=== PATIENT | female | born 1965 | race Caucasian/White ===

== ENCOUNTER 2017-05-05 15:12 | Outpatient (CLI) | payer BC | END 2017-05-05 15:13 | disposition home or self-care (01) | LOC: BICMAMMO 15:12 | PROVIDERS: ATTEND Obstetrics & Gynecology | DX: Z12.31 Encounter for screening mammogram for malignant neoplasm of breast (principal) | CPT/HCPCS: 77063; 77067 ==

== ENCOUNTER 2017-06-16 11:53 | Outpatient (CLI) | payer BC | END 2017-06-16 11:54 | disposition home or self-care (01) | LOC: BICRAD 11:53 | PROVIDERS: ATTEND Family Medicine | DX: R07.89 Other chest pain (principal) | CPT/HCPCS: 71046 ==

== ENCOUNTER 2017-08-09 15:21 | Outpatient (CLI) | payer BC ==
--- NOTE | 2017-08-09 16:09 | RAD ---
PA AND LATERAL CHEST: Indication: Dyspnea. Comparison: None. FINDINGS: Lungs are clear. Cardiomediastinal silhouette is within normal limits. There is mild scoliosis of the thoracic spine. There is an ACDF plate involving the lower cervical spine. IMPRESSION: No acute cardiopulmonary process. POS: [facility]
== END 2017-08-09 15:22 | disposition home or self-care (01) ==
LOC: RAD 15:21
PROVIDERS: ATTEND Internal Medicine Critical Care Medicine
DX: R06.00 Dyspnea, unspecified (principal)
CPT/HCPCS: 71046

== ENCOUNTER 2017-08-25 12:10 | Outpatient (CLI) | payer BC, OTHER ==
--- NOTE | 2017-08-25 15:07 | NM ---
VQ SCAN: Date: 08/25/17 HISTORY: 52-year-old female with dyspnea. TECHNIQUE: A ventilation perfusion scan was performed using 7 mCi Xenon-133 by inhalation for the ventilation sc an followed by the intravenous administration of 6.2 mCi technetium-99m MAA for the perfusion scan. FINDINGS: Fairly homogeneous tracer distribution seen in the lung torrez on both ventilation and perfusion scan s without mismatched pleural based, wedge-shaped, segmental or subsegmental perfusion defects. No sig nificant tracer retention is seen on the washout phase of the ventilation study. IMPRESSION: Normal exam. POS: [facility]
--- NOTE | 2017-08-25 15:19 | RAD ---
CHEST TWO VIEWS: History: Evaluate for pulmonary embolism. Comparison: 08-09-17 FINDINGS: Normal cardiac silhouette. The lungs and pleural spaces are clear. No pneumothorax or osseous abnorma lities. IMPRESSION: No acute cardiopulmonary process. POS: [facility]
[2017-08-25 15:42] LABS: Actual Bicarbonate (HCO3a) 26.6 mEq/L (22-28); Base Excess (BEa) 2.2 mEq/L (-2.0 to +3.0); CO2 Tension 40.8 mmHg (35.0-45.0); O2 Tension (PaO2) 100.3 mmHg (80.0-100.0); pH, Arterial 7.43 (7.35-7.45)
[2017-08-25 15:43] LABS: Hemoglobin (Hb) 12.8 g/dL (12.0-16.0)
[2017-08-25 15:44] LABS: Analyzer IN Cardio OR; Calcium, Ionized 1.2 mmol/L (1.12-1.30); Puncture Site RR
== END 2017-08-25 12:11 | disposition home or self-care (01) ==
LOC: NM 12:10
PROVIDERS: ATTEND Internal Medicine Critical Care Medicine
DX: R06.00 Dyspnea, unspecified (principal)
CPT/HCPCS: 71046; 78582; 82805; 94010; 94727; 94729; A9540; A9558

== ENCOUNTER 2018-08-15 14:17 | Outpatient (CLI) | payer BC ==
--- NOTE | 2018-08-15 14:45 | RAD ---
RIGHT KNEE 4 VIEWS: Date: 08/15/18 HISTORY: Right knee pain. FINDINGS/IMPRESSION: Mild degenerative changes are present. No fracture, dislocation, or bony destruction is identified. POS: OFF
== END 2018-08-15 14:18 | disposition home or self-care (01) ==
LOC: BICRAD 14:17
PROVIDERS: ATTEND Internal Medicine Rheumatology
DX: M25.561 Pain in right knee (principal); M17.11 Unilateral primary osteoarthritis, right knee

== ENCOUNTER 2018-11-22 15:16 | Outpatient (CLI) | payer BC ==
--- NOTE | 2018-11-22 15:35 | MMO ---
Bilateral MAMMO Bilat Screen [facility]. CLINICAL HISTORY: Patient is 53 years old and is seen for screening. The patient has no family history of breast cancer. The patient has no personal history of cancer. VIEWS: The views performed were: bilateral craniocaudal with tomosynthesis and bilateral mediolateral oblique with tomosynthesis. FILMS COMPARED: The present examination has been compared to prior imaging studies performed at [facility] on 01/31/2013, 05/01/2014, 06/02/2015 and 05/05/2017. This study has been interpreted with the assistance of computer-aided detection. MAMMOGRAM FINDINGS: The breasts are heterogeneously dense, which could obscure a lesion on mammography. There are no suspicious masses, suspicious calcifications, or new areas of architectural distortion. IMPRESSION: THERE IS NO MAMMOGRAPHIC EVIDENCE OF MALIGNANCY. A ROUTINE FOLLOW-UP MAMMOGRAM IN 1 YEAR IS RECOMMENDED. THE RESULTS OF THIS EXAM WERE SENT TO THE PATIENT. ACR BI-RADS Category 1 - Negative MAMMOGRAPHY NOTE: 1. A negative mammogram report should not delay a biopsy if a dominant of clinically suspicious mass is present. 2. Approximately 10% to 15% of breast cancers are not detected by mammography. 3. Adenosis and dense breasts may obscure an underlying neoplasm. Reported by: BRISEIDA ROSARIO MD Electonically Signed: [id number]
== END 2018-11-22 15:17 | disposition home or self-care (01) ==
LOC: BICMAMMO 15:16
PROVIDERS: ATTEND Family Medicine
DX: Z12.31 Encounter for screening mammogram for malignant neoplasm of breast (principal)
CPT/HCPCS: 77063; 77067

== ENCOUNTER 2019-11-30 12:38 | Outpatient (CLI) | payer BC ==
--- NOTE | 2019-11-30 13:09 | MMO ---
Bilateral MAMMO Bilat Screen [facility]. CLINICAL HISTORY: Patient is 54 years old and is seen for screening. The patient has no family history of breast cancer. The patient has no personal history of cancer. VIEWS: The views performed were: bilateral craniocaudal with tomosynthesis; bilateral mediolateral oblique with tomosynthesis; and bilateral exaggerated craniocaudal. FILMS COMPARED: The present examination has been compared to prior imaging studies performed at [facility] on 05/01/2014, 06/02/2015, 05/05/2017 and 11/22/2018. This study has been interpreted with the assistance of computer-aided detection. MAMMOGRAM FINDINGS: The breasts are heterogeneously dense, which could obscure a lesion on mammography. There are no suspicious masses, suspicious calcifications, or new areas of architectural distortion. IMPRESSION: THERE IS NO MAMMOGRAPHIC EVIDENCE OF MALIGNANCY. A ROUTINE FOLLOW-UP MAMMOGRAM IN 1 YEAR IS RECOMMENDED. THE RESULTS OF THIS EXAM WERE SENT TO THE PATIENT. ACR BI-RADS Category 1 - Negative MAMMOGRAPHY NOTE: 1. A negative mammogram report should not delay a biopsy if a dominant of clinically suspicious mass is present. 2. Approximately 10% to 15% of breast cancers are not detected by mammography. 3. Adenosis and dense breasts may obscure an underlying neoplasm. Reported by: SACHIN WEST MD Electonically Signed: [id number]
== END 2019-11-30 12:39 | disposition home or self-care (01) ==
LOC: BICMAMMO 12:38
PROVIDERS: ATTEND Family Medicine
DX: Z12.31 Encounter for screening mammogram for malignant neoplasm of breast (principal)
CPT/HCPCS: 77063; 77067

== ENCOUNTER 2020-04-15 20:13 | Observation (INO) | payer BC ==
[~2020-04-15 20:13] MED LIST: Iopamidol-370 76% 500 ML 1 ML ONE
[2020-04-15] MEDS ORDERED: Nitroglycerin 2% Ointment 1 INCH/1 GM Packet ONE (20:34)
[2020-04-15] MEDS ORDERED: Morphine 4 MG/ML VIAL ONE (20:34)
[2020-04-15] MEDS ORDERED: Aspirin Chewable 81 MG TAB ONE ×2 (20:34→20:35)
[2020-04-15 20:54] LABS: Hemoglobin 12.3 g/dL (12.0-16.0); Mean Corpuscular HGB CONC 33.9 g/dL (32.0-36.0); Mean Corpuscular Hemoglobin 31.2 pg (27.0-31.0); Mean Corpuscular Volume 91.8 fL (78.0-98.0); Mean Platelet Volume 8.8 fL (7.4-10.4); Platelet Count 273 thou/uL (130-400); RBC Distribution Width 11.2 % (11.5-14.5); Red Blood Cell (RBC) Count 3.94 mill/uL (4.20-5.40); White Blood Cell (WBC) Count 6.9 thou/uL (4.8-10.8)
[2020-04-15 21:06] LABS: Band 1 % (5-11); Eosinophils 3 % (0-10); Lymphocytes 42 % (21-51); MDiff Complete? YES; Monocytes 9 % (0-10); Neutrophil 38 % (42-75); Platelet Morphology Comment Appears Adequate; Reactive Lymphocytes 6 % (0-10)
[2020-04-15 21:17] LABS: ALT (SGPT) 12 U/L (8-55); AST (SGOT) 22 U/L (5-34); Albumin 4.5 g/dL (3.5-5.0); Alkaline Phosphatase 60 U/L (40-110); Anion Gap 18 mmol/L (10-20); BUN (Urea Nitrogen) 21 mg/dL (9.8-20.1); Bilirubin, Total 0.3 mg/dL (0.2-1.2); CK (CPK) 95 U/L (29-168); Calc. Creatinine Clearance 0 mL/min (70-130); Calcium 9.5 mg/dL (7.8-10.44); Carbon Dioxide 23 mmol/L (22-29); Chloride 102 mmol/L (98-107); Globulin 3.4 g/dL (2.4-3.5); Glucose 112 mg/dL (70-105); Lipase 131 U/L (8-78); Protein, Total 7.9 g/dL (6.0-8.3); Sodium 140 mmol/L (136-145)
[2020-04-15 21:24] LABS: Potassium 2.9 mmol/L (3.5-5.1)
--- NOTE | 2020-04-15 21:33 | CT ---
CTA OF THE CHEST AND ABDOMEN UTILIZING AN AORTIC DISSECTION PROTOCOL AND 3-D REFORMATTED IMAGING INDICATION: 55-year-old female with chest and back pain COMPARISON: None FINDINGS: Aorta: No acute aortic stenosis, occlusion or aneurysmal formation demonstrated. Central pulmonary artery: No central pulmonary embolus demonstrated. Additional thorax findings: No focal consolidation, pleural effusion or pneumothorax is evident. Additional abdominal findings: No acute abnormality. Osseous structures: No acute osseous abnormality. There is scattered degenerative and osteoarthritic change present. IMPRESSION: 1. No appreciable aortic stenosis, occlusion or aneurysmal formation demonstrated.
[2020-04-15] MEDS ORDERED: Potassium Chloride 20 MEQ TAB ONE (21:50)
--- NOTE | 2020-04-15 23:17 | ULT ---
RIGHT UPPER QUADRANT ULTRASOUND CLINICAL HISTORY: Chest pain with elevated lipase. COMPARISON: CTA aortic dissection protocol dated April 15, 2020 FINDINGS: Liver:Normal echotexture without focal mass. Intrahepatic bile ducts: No intrahepatic or extrahepatic biliary dilation.; Common bile duct: 4.9 mm. Gallbladder: Normal appearing. Rothman's sign:None Main portal vein:Patent with hepatopedal flow. Pancreas:Visualized pancreas appears normal. Right kidney: Right kidney measures 10.3 x 4.4 x 4.3 cm. No focal renal lesion or hydronephrosis. Additional findings: None. IMPRESSION: Normal RUQ ultrasound.
[2020-04-15] MEDS ORDERED: Morphine 4 MG/ML VIAL SLOW IVP PRN (23:35)
[2020-04-15] MEDS ORDERED: Ondansetron PF 4 MG/2 ML Vial IVP PRN (23:45)
[2020-04-15] MEDS ORDERED: Acetaminophen 325 MG TAB PO PRN (23:45)
[2020-04-15] MEDS ORDERED: Sodium Chloride 0.9% 1,000 ML IV SCH (23:45)
[2020-04-15] MEDS ORDERED: Ondansetron ODT 4 MG TAB SL PRN (23:45)
[2020-04-16 00:12] LABS: Troponin I Less than 0.010 ng/mL (< 0.028)
[2020-04-16 03:17] LABS: Troponin I Less than 0.010 ng/mL (< 0.028)
[2020-04-16] MEDS ORDERED: traMADol HCl 50 MG TAB PO PRN (04:15)
[2020-04-16] MEDS ORDERED: HYDROcodone/Acetaminophen 10/325 mg Tablet PO PRN (04:15)
[2020-04-16] MEDS ORDERED: Aspirin 325 mg Enteric Coated Tablet PO SCH (04:15)
[2020-04-16] MEDS ORDERED: Nitroglycerin 0.4 MG TAB (25 Tab Bottle) SL PRN (04:15)
--- NOTE | 2020-04-16 04:19 | PDOC.HHP ---
Hospitalist HPI Chest pain History of Present Illness: Patient is a 55 year old female with PMH HTN who presents to ED for chest pain. Pain began yesterday, 30 minutes before presentation, was in lower sternum, she was concerned for OR and went to ED. Pain radiates to back. In ED, ST depressions in lateral leads. CT chest showed no acute findings. troponin negative. she saw Dr Egan about 5 years ago, had stress test and holter monitor with no pathology identified. Patient admitted for further workup and care. Allergies/Adverse Reactions: Allergy/AdvReac Type Severity Reaction Status Date / Time caffeine [From Cafergot] Allergy Mild Verified 05/14/19 12:05 ergotamine tartrate Allergy Mild Verified 05/14/19 12:05 [From Cafergot] Home Medications: Medication Instructions Recorded Confirmed Type Escitalopram Oxalate 20 mg PO HS 10/10/12 10/10/12 History Levothyroxine Sodium 125 mcg PO HS 10/10/12 10/10/12 History Lisinopril/Hydrochlorothiazide 1 tablet PO HS 10/10/12 10/10/12 History [Zestoretic] traMADol HCl [Tramadol HCl] 50 mg PO QID PRN 10/10/12 10/10/12 History HYDROcodone/Acetaminophen [[place] 1 tab PO PRN PRN 10/11/12 10/11/12 History 10-325 Tablet] Past History: PMH: HTN, HLD, hypothyroidism PSH: none FH: heart disease social: no significant Hospitalist HPI ROS Constitutional: denies: fever, chills, sweats, weakness, malaise, other Eyes: denies: pain, vision change, conjunctivae inflammation, eyelid infla mmation, redness, other ENT: denies: ear pain, ear discharge, nose pain, nose discharge, nose congestion, mouth pain, mouth swelling, throat pain, throat swelling, other Respiratory: denies: cough, dry, shortness of breath, hemoptysis, SOB with excer tion, pleuritic pain, sputum, wheezing, other Cardiovascular: reports: chest pain. denies: palpitations, orthopnea, paroxysmal noc. dyspnea, edema, light headedness, other Gastrointestinal: denies: nausea, vomiting, abdominal pain, diarrhea, constip ation, melena, hematochezia, other Genitourinary: denies: dysuria, frequency, incontinence, hematuria, retention, other Musculoskeletal: denies: neck pain, shoulder pain, arm pain, back pain, hand pain, leg pain, foot pain, other Skin: denies: rash, lesions, kim, bruising, other Neurological: denies: weakness, numbness, incoordination, change in speech, confusion, seizures, other All other systems reviewed; all pertinent +/- noted in HPI/Subj Hospitalist Exam Vitals: VITAL SIGNS TueApr 15, 2020 22:30 SANDER Lobato Julia BP: 131/80 Pulse: 71 Resp: 18 Temp: 98.6 (Oral) Pain: 0 O2 sat: 98 on (Room Air) Time: 04/15/2020 22:30. General Appearance: NAD, awake alert Eye: PERRL, anicteric sclera ENT: normocephalic atraumatic, no oropharyngeal lesions, moist mucosa Neck: supple, symmetric, no JVD, no thyromegaly, no lymphadenopathy, no carotid bruit Heart: RRR, no murmur, no gallops, no rubs, normal peripheral pulses Respiratory: CTAB, no wheezes, no rales, no ronchi, normal chest expansion, no tachypnea, normal percussion Gastrointestinal: soft, non-tender, non-distended, normal bowel sounds, no palpable masses, no hepatomegaly, no splenomegaly, no bruit Extremities: no cyanosis, no clubbing, no edema Skin: normal turgor, no lesions, no rashes Neurological: cranial nerve grossly intact, normal sensation to touch, no weakness, no focal deficits, no new deficit Musculoskeletal: normal tone, normal strength, no muscle wasting Psychiatric: normal affect, normal behavior, A&O x 3 Hospitalist Results Result Diagrams: 04/15/20 20:04/15/20 20:30 Lab results: Laboratory Last Values WBC 6.9 thou/uL (4.8-10.8) 04/15/20 20: RBC 3.94 mill/uL (4.20-5.40) L 04/15/20 20: Hgb 12.3 g/dL (12.0-16.0) 04/15/20 20: Hct 36.2 % (36.0-47.0) 04/15/20 20:30 MCV 91.8 fL (78.0-98.0) 04/15/20 20:30 MCH 31.2 pg (27.0-31.0) H 04/15/20 20:30 MCHC 33.9 g/dL (32.0-36.0) 04/15/20 20:30 RDW 11.2 % (11.5-14.5) L 04/15/20 20:30 Plt Count 273 thou/uL (130-400) 04/15/20 20:30 MPV 8.8 fL (7.4-10.4) 04/15/20 20:30 Neutrophils % (Manual) 38 % (42-75) L 04/15/20 20:30 Band Neuts % (Manual) 1 % (5-11) L 04/15/20 20:30 Lymphocytes % (Manual) 42 % (21-51) 04/15/20 20:30 Reactive Lymphs % 6 % (0-10) 04/15/20 20:30 Monocytes % (Manual) 9 % (0-10) 04/15/20 20:30 Eosinophils % (Manual) 3 % (0-10) 04/15/20 20:30 Basophils % (Manual) 1 % (0-2) 04/15/20 20:30 Lymphocytes # Not Reportable 04/15/20 20: Plt Morphology Comment Appears Adequate 04/15/20 20:30 Sodium 140 mmol/L (136-145) 04/15/20 20:30 Potassium 2.9 mmol/L (3.5-5.1) L* 04/15/20 20:30 Chloride 102 mmol/L (98-107) 04/15/20 20:30 Carbon Dioxide 23 mmol/L (22-29) 04/15/20 20:30 Anion Gap 18 mmol/L (10-20) 04/15/20 20:30 BUN 21 mg/dL (9.8-20.1) H 04/15/20 20:30 Creatinine 0.82 mg/dL (0.6-1.1) 04/15/20 20:30 Estimated GFR (MDRD) 72 04/15/20 20:30 Glucose 112 mg/dL (70-105) H 04/15/20 20:30 Calcium 9.5 mg/dL (7.8-10.44) 04/15/20 20:30 Total Bilirubin 0.3 mg/dL (0.2-1.2) 04/15/20 20:30 AST 22 U/L (5-34) 04/15/20 20:30 ALT 12 U/L (8-55) 04/15/20 20:30 Alkaline Phosphatase 60 U/L (40-110) 04/15/20 20:30 Creatine Kinase 95 U/L (29-168) 04/15/20 20:30 Troponin I Less than 0.010 ng/mL (< 0.028) 04/16/20 02: Serum Total Protein 7.9 g/dL (6.0-8.3) 04/15/20 20:30 Albumin 4.5 g/dL (3.5-5.0) 04/15/20 20:30 Globulin 3.4 g/dL (2.4-3.5) 04/15/20 20:30 Albumin/Globulin Ratio 1.3 g/dL (1.2-2.2) 04/15/20 20:30 Lipase 131 U/L (8-78) H 04/15/20 20:30 Additional comment: CT Aortic Dissection Protocol Observe DT: TueApr 15, 2020 AORTICDIS CTA OF THE CHEST AND ABDOMEN UTILIZING AN AORTIC DISSECTION PROTOCOL AND 3-D REFORMATTED IMAGING INDICATION: 55-year-old female with chest and back pain COMPARISON: None FINDINGS: Aorta: No acute aortic stenosis, occlusion or aneurysmal formation demonstrated. Central pulmonary artery: No central pulmonary embolus demonstrated. Additional thorax findings: No focal consolidation, pleural effusion or pneumothorax is evident. Additional abdominal findings: No acute abnormality. Osseous structures: No acute osseous abnormality. There is scattered degenerative and osteoarthritic change present. IMPRESSION: 1. No appreciable aortic stenosis, occlusion or aneurysmal formation demonstrated. ED labs, EKG, imaging reports, ed documents, vital signs reviewed EKG: NSR rate 70s, ST depression V4-V6 Hospitalist H&P A/P Plan: Patient is a 55 year old female with PMH HTN who presents to ED for chest pain. # chest pain # EKG changes Pain began yesterday, 30 minutes before presentation, was in lower sternum, she was concerned for OR and went to ED. Pain radiates to back. In ED, ST depressions in lateral leads. CT chest showed no acute findings. troponin negative. she saw Dr Egan about 5 years ago, had stress test and holter monitor with no pathology identified. family history of heart disesae +. Patient admitted for further workup and care. - admit to telemetry - stress test - asa, statin, beta aureliano - consult Dr Egan - monitor on telemetry for arrhythmia - npo - trend troponin # hypokalemia - replacement parameters - kcl now # HLD # hypothyroidism - resume synthroid - tsh, t4 add on DVT/GI ppx
[2020-04-16] MEDS ORDERED: Ondansetron PF 4 MG/2 ML Vial IVP PRN (04:21)
[2020-04-16] MEDS ORDERED: Acetaminophen 325 MG TAB PO PRN (04:21)
[2020-04-16] MEDS ORDERED: cloNIDine 0.1 MG TAB PO PRN (04:21)
[2020-04-16] MEDS ORDERED: Labetalol HCl 100 MG/20 ML VIAL SLOW IVP PRN (04:21)
[2020-04-16] MEDS ORDERED: hydrALAZINE 20 MG/ML VIAL SLOW IVP PRN (04:21)
[2020-04-16] MEDS ORDERED: Promethazine HCl 12.5 MG in Sodium Chloride 0.9% 50 ML IVPB PRN (04:21)
[2020-04-16] MEDS ORDERED: Electrolyte Replacement Protocol 1 EACH FS SCH (04:30)
[2020-04-16] MEDS ORDERED: Acetaminophen 325 MG TAB ONE (05:07)
[2020-04-16 05:14] LABS: Free T4 (Free Thyroxine) 1.14 ng/dL (0.70-1.48); Thyroid Stimulating Hormone 0.2417 uIU/mL (0.35-4.94)
[2020-04-16] MEDS: Potassium Chloride 10 MEQ in Premix Bag 1 BAG IVPB SCH ×3 (05:53→09:41)
[2020-04-16] MEDS ORDERED: Metoprolol Tartrate 25 MG TAB PO SCH (09:00)
[2020-04-16] MEDS ORDERED: Enoxaparin Sodium 40 MG/0.4 ML SYRINGE SC SCH (09:00)
[2020-04-16] MEDS ORDERED: Polyethylene Glycol 3350 17 GM Packet PO SCH (09:00)
[2020-04-16] MEDS ORDERED: Famotidine 20 MG TAB PO SCH (09:00)
[2020-04-16] MEDS ORDERED: Aspirin Chewable 81 MG TAB PO SCH (09:00)
[2020-04-16] MEDS ORDERED: ADENOSINE 60 MG/20 ML VIAL ONE (10:22)
[2020-04-16 11:01] LABS: Magnesium 2.1 mg/dL (1.6-2.6); Phosphorus 3.9 mg/dL (2.3-4.7)
--- NOTE | 2020-04-16 11:02 | PDOC.HOSPP ---
- Subjective Encounter Date: 04/16/20 Encounter Time: 07:15 Subjective: Patient seen and examined bedside today, no overnight event, no new complaint, - Objective Result Diagrams: 04/15/20 20:30 04/15/20 20:30 Radiology Reviewed by me: Yes EKG Reviewed by me: Yes Hospitalist ROS - Review of Systems ENT: denies: ear pain, ear discharge, nose pain, nose discharge, nose congestion, mouth pain, mouth swelling, throat pain, throat swelling, other Respiratory: denies: cough, dry, shortness of breath, hemoptysis, SOB with excertion, pleuritic pain, sputum, wheezing, other Cardiovascular: denies: chest pain, palpitations, orthopnea, paroxysmal noc. dyspnea, edema, light headedness, other Gastrointestinal: denies: nausea, vomiting, abdominal pain, diarrhea, cons tipation, melena, hematochezia, other Genitourinary: denies: dysuria, frequency, incontinence, hematuria, retention, other Musculoskeletal: denies: neck pain, shoulder pain, arm pain, back pain, hand pain, leg pain, foot pain, other - Medication Medications: Active Medications Generic Name Dose Route Start Last Admin Trade Name Freq PRN Reason Stop Dose Admin Aspirin 81 mg 04/16/20 09:00 04/16/20 09:43 Aspirin Chewable 81 Mg Tab PO Not Given DAILY [facility] Enoxaparin Sodium 40 mg 04/16/20 09:00 04/16/20 09:43 Enoxaparin Sodium 40 Mg/0.4 Ml Syringe SC Not Given 0900 [facility] Famotidine 20 mg 04/16/20 09:00 04/16/20 09:43 Famotidine 20 Mg Tab PO Not Given BID [facility] Metoprolol Tartrate 12.5 mg 04/16/20 09:00 04/16/20 09:43 Metoprolol Tartrate 25 Mg Tab PO Not Given BID [facility] Polyethylene Glycol 17 gm 04/16/20 09:00 04/16/20 09:43 Polyethylene Glycol 3350 17 Gm Packet PO Not Given DAILY [facility] Hospitalist Exam General Appearance: NAD, awake alert Eye: PERRL, anicteric sclera ENT: normocephalic atraumatic, no oropharyngeal lesions Neck: supple, symmetric, no JVD, no thyromegaly Heart: RRR, no murmur, no gallops, no rubs Respiratory: no wheezes, no rales, no ronchi Gastrointestinal: soft, non-tender, non-distended, normal bowel sounds Extremities: no cyanosis, no clubbing, no edema Skin: normal turgor, no lesions Neurological: no focal deficits Musculoskeletal: normal tone, normal strength Psychiatric: normal affect, normal behavior Hosp A/P (1) Chest pain Code(s): R07.9 - CHEST PAIN, UNSPECIFIED Status: Acute (2) Anxiety and depression Code(s): F41.9 - ANXIETY DISORDER, UNSPECIFIED; F32.9 - MAJOR DEPRESSIVE DISORDER, SINGLE EPISODE, UNSPECIFIED Status: Acute (3) Hypothyroidism Code(s): E03.9 - HYPOTHYROIDISM, UNSPECIFIED Status: Acute (4) Hypertension Code(s): I10 - ESSENTIAL (PRIMARY) HYPERTENSION Status: Acute (5) Hypokalemia Code(s): E87.6 - HYPOKALEMIA Status: Acute - Plan old records reviewed/req Replace potassium chloride 40 mill EQ p.o. one-time dose, Stress test is planned today, Discharge disposition based on stress test result Cardiology has been consulted
[2020-04-16] MEDS ORDERED: Potassium Chloride 20 MEQ TAB PO SCH (11:15)
--- NOTE | 2020-04-16 12:56 | NM ---
Radionucleotide stress and rest myocardial perfusion scan with CT attenuation correction and SPECT im aging Left ventricular wall motion evaluation and ejection fraction HISTORY: Chest pain. FINDINGS: Adenosine protocol. Homogeneous uptake of radiotracer throughout the left ventricular myoca rdium. No focal perfusion defect or reversibility. QGS analysis of gated SPECT images shows no focal wall motion abnormalities. Ejection fraction calcul ated at 65%. IMPRESSION : No evidence of ischemia. Normal LVEF.
[2020-04-16] MEDS ORDERED: Morphine 4 MG/ML VIAL ONE (13:09)
[2020-04-16] MEDS ORDERED: Potassium Chloride 20 MEQ TAB ONE (13:09)
[2020-04-16 14:28] LABS: Potassium 4.7 mmol/L (3.5-5.1)
--- NOTE | 2020-04-16 14:37 | PDOC.DS.DS ---
Provider Date of Admission: 04/15/20 22:23 Date of Discharge: 04/16/20 Admitting Provider: Jhonny Euceda MD Primary Care Physician: Rosy Hart MD Course Hospital Course: 55-year-old female who was admitted for chest pain, her chest pain description was atypical, patient underwent stress test that came back negative, her troponins remain negative, her telemetry remained unremarkable, patient was chest pain-free while in hospital, she had hypokalemia which was replaced while in hospital, and corrected, I am suspecting her chest pain probably related with musculoskeletal etiology from muscle cramps from hypokalemia, possibility of acid reflux is also likely, patient expressed her wish to go home, we have advised her to continue this medication and follow-up with primary care physician for evaluation and treatment. Resuscitation Status: 04/16/20 04:20 Resuscitation Status Routine Resuscitation Status: FULL: Full Resuscitation Lab Results: 04/15/20 20:30 04/16/20 13:34 Abnormal Lab Results - Last 48 hrs 04/15/20 20:30: RBC 3.94 L, MCH 31.2 H, RDW 11.2 L, Neutrophils % (Manual) 38 L, Band Neuts % (Manual) 1 L 04/15/20 20:30: Potassium 2.9 L*, BUN 21 H, Lipase 131 H 04/16/20 02:22: TSH 3rd Generation 0.2417 L Chest x-ray Status: image reviewed by me Additional comments: No acute cardiopulmonary process CT scan - chest Status: image reviewed by me Additional comments: No evidence of dissection Other Status: image reviewed by me Additional comments: Stress test negative for any reversible ischemia Physical Exam: The patient was seen and examined on the day of discharge. General Appearance: NAD, awake alert Eye: PERRL, anicteric sclera ENT: normocephalic atraumatic, no oropharyngeal lesions Neck: supple, symmetric, no JVD, no thyromegaly Respiratory: CTAB, no wheezes, no rales, no ronchi Cardiovascular: RRR, no murmur, no gallops, no rubs Gastrointestinal: soft, non-tender, non-distended, normal bowel sounds Extremities: no cyanosis, no clubbing, no edema Skin: normal turgor, no lesions Neurological: no focal deficits Musculoskeletal: normal tone, normal strength, no muscle wasting PSYCH: normal affect, normal behavior, A&O x 3 Problem (1) Chest pain Code(s): R07.9 - CHEST PAIN, UNSPECIFIED Status: Acute (2) Anxiety and depression Code(s): F41.9 - ANXIETY DISORDER, UNSPECIFIED; F32.9 - MAJOR DEPRESSIVE DISORDER, SINGLE EPISODE, UNSPECIFIED Status: Acute (3) Hypothyroidism Code(s): E03.9 - HYPOTHYROIDISM, UNSPECIFIED Status: Acute (4) Hypertension Code(s): I10 - ESSENTIAL (PRIMARY) HYPERTENSION Status: Acute (5) Hypokalemia Code(s): E87.6 - HYPOKALEMIA Status: Acute Plan Home Medications: Medication Instructions Recorded Confirmed Type Escitalopram Oxalate 20 mg PO HS 10/10/12 10/10/12 History Levothyroxine Sodium 125 mcg PO HS 10/10/12 10/10/12 History Lisinopril/Hydrochlorothiazide 1 tablet PO HS 10/10/12 10/10/12 History [Zestoretic] traMADol HCl [Tramadol HCl] 50 mg PO QID PRN 10/10/12 10/10/12 History HYDROcodone/Acetaminophen [[place] 1 tab PO PRN PRN 10/11/12 10/11/12 History 10-325 Tablet] Allergies: caffeine [From Cafergot] Allergy (Mild, Verified 05/14/19 12:05) PER ORDERS nausea ergotamine tartrate [From Cafergot] Allergy (Mild, Verified 05/14/19 12:05) PER ORDERS nausea Activity:: Activity as Tolerated Nourishment:: Heart Healthy Diet Therapies:: Not Applicable Equipment/Supplies:: Not Applicable IV Therapy:: Not Applicable Referrals: Rosy Hart MD [Primary Care Provider] - Disposition: HOME Quality CORE MEASURES:: N/A
[2020-04-16] MEDS ORDERED: Escitalopram Oxalate 20 mg Tablet PO SCH (21:00)
[2020-04-16] MEDS ORDERED: Levothyroxine Sodium 125 MCG TAB PO SCH (21:00)
[2020-04-16] MEDS ORDERED: Lisinopril/Hydrochlorothiazide 20/25 mg Tablet PO SCH (21:00)
[2020-04-16] MEDS ORDERED: Atorvastatin Calcium 40 MG TAB PO SCH (21:00)
== END 2020-04-16 14:45 | disposition home or self-care (01) ==
LOC: ERS 20:13 → ERHOLD 22:23
PROVIDERS: ADMIT Internal Medicine; ATTEND Internal Medicine
DX: R07.89 Other chest pain (principal); F41.9 Anxiety disorder, unspecified; F32.9 Major depressive disorder, single episode, unspecified; E03.9 Hypothyroidism, unspecified; I10 Essential (primary) hypertension; E87.6 Hypokalemia; E78.5 Hyperlipidemia, unspecified; Z79.899 Other long term (current) drug therapy; Z91.048 Other nonmedicinal substance allergy status
CPT/HCPCS: 36415; 71275; 74174; 76705; 78452; 80053; 82550; 83690; 83735; 84100; 84132; 84439; 84443; 84484; 85025; 93005; 93017; 94760; 96374; 96376; A9500; G0378; J0153; J2270; J3480; Q9967

== ENCOUNTER 2020-05-31 04:26 | Emergency (ER) | payer BC ==
[2020-05-31] MEDS ORDERED: Ondansetron PF 4 MG/2 ML Vial ONE (04:56)
[2020-05-31] MEDS ORDERED: Ketorolac Tromethamine 30 MG/ML VIAL ONE (04:56)
[2020-05-31 05:23] LABS: #Lymphocytes 0.7 thou/uL (1.20-3.40); #Monocytes 0.3 thou/uL (0.11-0.59); #Neutrophils 4.8 thou/uL (1.40-6.50); %Basophils 0.3 % (0.0-1.0); %Eosinophils 0.7 % (0.0-10.0); %Lymphocytes 12.2 % (21.0-51.0); %Monocytes 4.6 % (0.0-10.0); %Neutrophils 82.2 % (42.0-75.0); Mean Corpuscular Hemoglobin 30.3 pg (27.0-31.0); Mean Corpuscular Volume 91.9 fL (78.0-98.0); Mean Platelet Volume 8.3 fL (7.4-10.4); Platelet Count 270 thou/uL (130-400); RBC Distribution Width 10.9 % (11.5-14.5); Red Blood Cell (RBC) Count 3.96 mill/uL (4.20-5.40); White Blood Cell (WBC) Count 5.9 thou/uL (4.8-10.8)
[2020-05-31 05:45] LABS: ALT (SGPT) 16 U/L (8-55); AST (SGOT) 27 U/L (5-34); Albumin 4.3 g/dL (3.5-5.0); Alkaline Phosphatase 65 U/L (40-110); Anion Gap 13 mmol/L (10-20); BUN (Urea Nitrogen) 26 mg/dL (9.8-20.1); Bilirubin, Total 0.8 mg/dL (0.2-1.2); Calc. Creatinine Clearance 0 mL/min (70-130); Carbon Dioxide 30 mmol/L (22-29); Chloride 100 mmol/L (98-107); Globulin 3.3 g/dL (2.4-3.5); Glucose 102 mg/dL (70-105); Potassium 3.4 mmol/L (3.5-5.1); Protein, Total 7.6 g/dL (6.0-8.3); Sodium 140 mmol/L (136-145)
== END 2020-05-31 06:17 | disposition home or self-care (01) ==
LOC: ERS 04:26
DX: R11.2 Nausea with vomiting, unspecified (principal); R19.7 Diarrhea, unspecified; E86.0 Dehydration; I10 Essential (primary) hypertension; E03.9 Hypothyroidism, unspecified; E78.5 Hyperlipidemia, unspecified; Z79.899 Other long term (current) drug therapy
CPT/HCPCS: 80053; 85025; 96374; 96375; J1885; J2405

== ENCOUNTER 2022-09-23 04:42 | Emergency (ER) | payer BC ==
[2022-09-23 05:41] LABS: #Monocytes 0.3 thou/uL (0.11-0.59); #Neutrophils 5.5 thou/uL (1.40-6.50); %Basophils 0.5 % (0.0-1.0); %Eosinophils 0.3 % (0.0-10.0); %Lymphocytes 8.2 % (21.0-51.0); %Monocytes 3.9 % (0.0-10.0); %Neutrophils 86.6 % (42.0-75.0); Hemoglobin 12.3 g/dL (12.0-16.0); Mean Corpuscular HGB CONC 32.6 g/dL (32.0-36.0); Mean Corpuscular Hemoglobin 29.6 pg (27.0-31.0); Mean Corpuscular Volume 90.8 fl (78.0-98.0); Mean Platelet Volume 11.4 fL (7.4-10.4); Platelet Count 213 10x3/uL (130-400); RBC Distribution Width 12.1 % (11.5-14.5); Red Blood Cell (RBC) Count 4.15 mill/uL (4.20-5.40); White Blood Cell (WBC) Count 6.4 10x3/uL (4.8-10.8)
[2022-09-23] MEDS ORDERED: Ondansetron PF 4 MG/2 ML Vial ONE (05:43)
[2022-09-23] MEDS ORDERED: Metoclopramide HCl 10 MG/2 ML VIAL ONE (05:43)
[2022-09-23] MEDS ORDERED: Ketorolac Tromethamine 30 MG/ML VIAL ONE (05:43)
[2022-09-23] MEDS ORDERED: diphenhydrAMINE 50 MG/ML VIAL ONE (05:43)
[2022-09-23 06:08] LABS: ALT (SGPT) 16 U/L (8-55); AST (SGOT) 25 U/L (5-34); Albumin 4.3 g/dL (3.5-5.0); Alkaline Phosphatase 56 U/L (40-110); Anion Gap 14 mmol/L (10-20); BUN (Urea Nitrogen) 22 mg/dL (9.8-20.1); Calc. Creatinine Clearance 0 mL/min (70-130); Carbon Dioxide 24 mmol/L (22-29); Chloride 105 mmol/L (98-107); Estimated GFR 90; Globulin 3.1 g/dL (2.4-3.5); Glucose 116 mg/dL (70-105); Lipase 10 U/L (8-78); Potassium 3.8 mmol/L (3.5-5.1); Protein, Total 7.4 g/dL (6.0-8.3); Sodium 139 mmol/L (136-145)
== END 2022-09-23 07:52 | disposition home or self-care (01) ==
LOC: ERS 04:42
DX: R11.2 Nausea with vomiting, unspecified (principal); R19.7 Diarrhea, unspecified; I10 Essential (primary) hypertension; E03.9 Hypothyroidism, unspecified; E78.5 Hyperlipidemia, unspecified
CPT/HCPCS: 36415; 80053; 83690; 85025; 93005; 96365; 96375; J1200; J1885; J2405; J2765

== ENCOUNTER 2023-10-12 11:02 | Outpatient (CLI) | payer BC | END 2023-10-12 11:03 | disposition home or self-care (01) | LOC: BICMAMMO 11:02 | PROVIDERS: ATTEND Family Medicine | DX: Z12.31 Encounter for screening mammogram for malignant neoplasm of breast (principal); Z78.0 Asymptomatic menopausal state | CPT/HCPCS: 77063; 77067; 77080 ==